=== PATIENT | male | born 1990 | race Caucasian/White ===

== ENCOUNTER 2018-08-19 13:48 | Emergency (ER) | payer BC, OTHER | END 2018-08-19 17:06 | disposition home or self-care (01) | LOC: FTE 13:48 | DX: S49.91XA Unspecified injury of right shoulder and upper arm, initial encounter (principal); X50.1XXA Overexertion from prolonged static or awkward postures, initial encounter; Y92.89 Other specified places as the place of occurrence of the external cause | CPT/HCPCS: 73030; 73030-RT; 99283-25 ==